=== PATIENT | female | born 1990 | race Caucasian/White ===

== ENCOUNTER 2019-10-29 11:43 | Outpatient (CLI) | payer MEDICAID, SELFPAY ==
--- NOTE | 2019-10-29 11:49 | XR_ITS ---
WS: [id number] PELVIS TECHNIQUE: 1 view(s) of the pelvis CLINICAL INFORMATION: back pain COMPARISON: None. FINDINGS: Visualized hips are normal in appearance. Normal acetabulum. Lower lumbar spine is normal. Inferior a nd superior pubic rami are normal. Normal iliopectineal line. Sacrum is normal in appearance. Surgica l clips right lower quadrant XR/XR pelvis 1-2V* [id number] IMPRESSION: Normal pelvis.
--- NOTE | 2019-10-29 11:49 | XR_ITS ---
WS: [id number] LUMBAR SPINE TECHNIQUE: 3 views of the lumbar spine CLINICAL INFORMATION: back pain COMPARISON: None. FINDINGS: Cholecystectomy clips. Surgical clips right lower quadrant. Five [id number] lumbar vertebral bodies. Disc space heights are well preserved. No compression f ractures. No spondylolisthesis. Mild facet arthropathy L5-S1. Visualized sacroiliac joints are normal . Normal visualized soft tissues. Partially visualized bowel gas pattern is normal. XR/XR lumbar spine 2-3V* [id number] IMPRESSION: 1. Mild lumbar curve. 2. Disc space heights and vertebral body heights are well preserved.
== END 2019-10-29 11:44 | disposition home or self-care (01) ==
LOC: RADWPI 11:47
PROVIDERS: Family Provider Family Medicine; PCP Family Medicine; Visit Provider Internal Medicine Rheumatology
DX: M54.9 Dorsalgia, unspecified (principal); M79.7 Fibromyalgia; Z11.59 Encounter for screening for other viral diseases; Z79.899 Other long term (current) drug therapy; Z11.1 Encounter for screening for respiratory tuberculosis; M25.50 Pain in unspecified joint; R21 Rash and other nonspecific skin eruption; N96 Recurrent pregnancy loss; R76.8 Other specified abnormal immunological findings in serum; R51 Headache
CPT/HCPCS: 36415; 72100; 72170; 80076; 81001; 82306; 82565; 82570; 82784; 83516; 84156; 84439; 84443; 85025; 85651; 86140; 86147; 86480; 86704; 86803; 87340; 99203

== ENCOUNTER → 2019-11-29 11:40 | Outpatient (BNVA) | payer MEDICAID, SELFPAY | PROVIDERS: Family Provider Family Medicine; PCP Family Medicine; Visit Provider Specialist | DX: G43.711 Chronic migraine without aura, intractable, with status migrainosus (principal); M79.7 Fibromyalgia; Z87.891 Personal history of nicotine dependence | CPT/HCPCS: 99204 ==

== ENCOUNTER → 2019-12-19 14:35 | Outpatient (BNVA) | payer MEDICAID, SELFPAY | PROVIDERS: Family Provider Family Medicine; PCP Family Medicine; Visit Provider Internal Medicine Rheumatology | DX: M25.50 Pain in unspecified joint (principal); Z79.899 Other long term (current) drug therapy; M79.7 Fibromyalgia; G43.711 Chronic migraine without aura, intractable, with status migrainosus; N96 Recurrent pregnancy loss | CPT/HCPCS: 99214 ==

== ENCOUNTER → 2020-03-27 14:56 | Outpatient (BNVA) | payer MEDICAID, SELFPAY | PROVIDERS: Family Provider Family Medicine; PCP Family Medicine; Visit Provider Internal Medicine Rheumatology | DX: M35.9 Systemic involvement of connective tissue, unspecified (principal); Z79.899 Other long term (current) drug therapy; M25.50 Pain in unspecified joint; M79.7 Fibromyalgia; Z87.891 Personal history of nicotine dependence | CPT/HCPCS: 99214 ==

== ENCOUNTER → 2020-05-22 12:59 | Outpatient (BNVA) | payer MEDICAID, SELFPAY | PROVIDERS: Family Provider Family Medicine; PCP Family Medicine; Visit Provider Internal Medicine Rheumatology | DX: M19.90 Unspecified osteoarthritis, unspecified site (principal); M35.9 Systemic involvement of connective tissue, unspecified; Z79.899 Other long term (current) drug therapy; M79.7 Fibromyalgia; Z87.891 Personal history of nicotine dependence | CPT/HCPCS: 99214 ==

== ENCOUNTER → 2020-08-19 12:25 | Outpatient (BNVA) | payer MEDICAID, SELFPAY | PROVIDERS: Family Provider Family Medicine; PCP Family Medicine; Visit Provider Specialist | DX: G43.711 Chronic migraine without aura, intractable, with status migrainosus (principal); Z87.891 Personal history of nicotine dependence | CPT/HCPCS: 99215 ==

== ENCOUNTER → 2020-08-20 12:41 | Outpatient (BNVA) | payer MEDICAID, SELFPAY | PROVIDERS: Family Provider Family Medicine; PCP Family Medicine; Visit Provider Internal Medicine Rheumatology | DX: M19.90 Unspecified osteoarthritis, unspecified site (principal); M35.9 Systemic involvement of connective tissue, unspecified; Z79.899 Other long term (current) drug therapy; M79.7 Fibromyalgia; G43.711 Chronic migraine without aura, intractable, with status migrainosus; Z87.891 Personal history of nicotine dependence | CPT/HCPCS: 99214 ==

== ENCOUNTER → 2020-08-28 13:13 | Outpatient (BNVA) | payer MEDICAID, SELFPAY | PROVIDERS: Family Provider Family Medicine; PCP Family Medicine; Referring Provider Internal Medicine Rheumatology; Visit Provider Orthopaedic Surgery | DX: M54.2 Cervicalgia (principal); M54.5 Low back pain; M40.46 Postural lordosis, lumbar region | CPT/HCPCS: 72050; 72110 ==

== ENCOUNTER → 2020-12-17 14:21 | Outpatient (BNVA) | payer MEDICAID, SELFPAY | PROVIDERS: Family Provider Family Medicine; PCP Family Medicine; Visit Provider Specialist | DX: G43.711 Chronic migraine without aura, intractable, with status migrainosus (principal) | CPT/HCPCS: 99214 ==

== ENCOUNTER 2020-12-30 08:42 | Outpatient (CLI) | payer MEDICAID, SELFPAY ==
--- NOTE | 2020-12-30 08:45 | MR_ITS ---
WS: [id number] MRI HEAD WITHOUT CONTRAST TECHNIQUE: Sagittal T1, T2 axial, T2 axial FLAIR, axial and coronal T1 images, axial susceptibility w eighted imaging, axial diffusion weighted images, and coronal T2 images were obtained. CLINICAL INFORMATION: G43.711 - Chronic migraine without aura, intractable, wit... COMPARISON: July 09, 2020 and MRI June 03, 2015 FINDINGS: No evidence of restricted diffusion to suggest acute ischemia. Ventricles system and basal cisterns a re patent. Slightly low-lying cerebellar tonsils. Normal fourth ventricle. No hydrocephalus. Mild microwave radio technician wding at the foramen magnum. Normal brain stem signal. No hemosiderin on susceptibly weighted images. No suspicious intracranial signal abnormalities. Normal posterior fossa. Normal vascular flow voids at the skull base. No extra-axial fluid collection s. No evidence of mass or mass effect. Paranasal sinuses and well aerated. Normal optic chiasm and pi tuitary infundibulum. Temporal lobes and hippocampal formations are normal in appearance. MR/MR head wo con* [id number] IMPRESSION: 1. No evidence of restricted diffusion to suggest acute ischemia. 2. Low-lying cerebellar tonsils measuring 4 mm below the foramen magnum. No hy drocephalus. Normal fourth ventricle. 3. No suspicious intracranial signal abnormalities. 4. No hemosiderin on susceptibly weighted images. 5. Normal optic chiasm and pituitary infundibulum. Normal cavernous sinuses an d Meckel's cave. 6. No other significant findings and no significant changes since the MRI 2015 .
== END 2020-12-30 08:43 | disposition home or self-care (01) ==
LOC: RADSHAW 08:44
PROVIDERS: PCP Family Medicine; Visit Provider Specialist
DX: G43.711 Chronic migraine without aura, intractable, with status migrainosus (principal)
CPT/HCPCS: 70551

== ENCOUNTER → 2021-03-18 09:01 | Outpatient (BNVA) | payer MEDICAID, SELFPAY | PROVIDERS: PCP Family Medicine; Visit Provider Specialist | DX: G43.711 Chronic migraine without aura, intractable, with status migrainosus (principal) | CPT/HCPCS: 64615; 99213; J0585 ==

== ENCOUNTER → 2021-06-11 08:52 | Outpatient (BNVA) | payer MEDICAID, SELFPAY | PROVIDERS: PCP Family Medicine; Visit Provider Specialist | DX: G43.711 Chronic migraine without aura, intractable, with status migrainosus (principal); M79.7 Fibromyalgia | CPT/HCPCS: 64615; J0585 ==

== ENCOUNTER → 2021-07-21 13:34 | Outpatient (BNVA) | payer MEDICAID, SELFPAY | PROVIDERS: PCP Family Medicine; Visit Provider Internal Medicine Rheumatology | DX: M19.90 Unspecified osteoarthritis, unspecified site (principal); M35.9 Systemic involvement of connective tissue, unspecified; M79.7 Fibromyalgia; Z79.899 Other long term (current) drug therapy; Z71.89 Other specified counseling | CPT/HCPCS: 99214 ==

== ENCOUNTER → 2022-04-29 13:31 | Outpatient (BNVA) | payer MEDICAID, SELFPAY | PROVIDERS: PCP Family Medicine; Visit Provider Internal Medicine Rheumatology | DX: Z79.899 Other long term (current) drug therapy (principal); M35.9 Systemic involvement of connective tissue, unspecified | CPT/HCPCS: 80076; 82565; 85025; 85651; 86140 ==

== ENCOUNTER 2022-08-06 15:18 | Outpatient (CLI) | payer MEDICAID, SELFPAY ==
[2022-08-19 11:48] LABS: Miscellaneous Test SEE COMMENTS
== END 2022-08-06 15:19 | disposition home or self-care (01) ==
LOC: LAB 15:21
PROVIDERS: PCP Family Medicine; Visit Provider Internal Medicine Rheumatology
DX: Z01.89 Encounter for other specified special examinations (principal)
CPT/HCPCS: 87045; 87427; 87449; 87506

== ENCOUNTER → 2022-09-30 12:23 | Outpatient (BNVA) | payer MEDICAID, SELFPAY | PROVIDERS: PCP Family Medicine; Visit Provider Internal Medicine Rheumatology | DX: M35.9 Systemic involvement of connective tissue, unspecified (principal); Z79.899 Other long term (current) drug therapy | CPT/HCPCS: 80076; 82565; 85025; 86140 ==

== ENCOUNTER 2022-12-01 07:06 | Outpatient (CLI) | payer MEDICAID, SELFPAY ==
--- NOTE | 2022-12-01 07:15 | MR_ITS ---
WS: [id number] MRA ANGIOGRAPHY [place] HISTORY: R51.9 - Headache, unspecified COMPARISON: MRI brain 12/30/2020 TECHNIQUE: 3-D MR angiography is performed of the [place]. All images are reviewed including source images. Distal vertebral and basilar arteries are intact with no significant stenosis or plaque. Posterior ce rebral arteries are normal course and caliber. Posterior communicating arteries are both patent. 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 Intracranial portion of the internal carotid arteries are normal course and caliber. No significant a therosclerosis, stenosis or aneurysm identified. Middle and anterior cerebral arteries are both paten t with no significant disease. Anterior communicating artery is also normal. IMPRESSION: 1. No significant areas of atherosclerosis in the [place]. 2. No evidence for vasculitis, stricture or aneurysm. 3. Hypoplastic RIGHT posterior communicating artery.
== END 2022-12-01 07:07 | disposition home or self-care (01) ==
LOC: RAD 07:06
PROVIDERS: PCP Family Medicine; Visit Provider Specialist
DX: R51.9 Headache, unspecified (principal); Q28.3 Other malformations of cerebral vessels
CPT/HCPCS: 70544